=== PATIENT | male | born 1945 | race Caucasian/White ===

== ENCOUNTER → 2017-10-15 | Outpatient (CLI) | payer OTHER, MEDICARE | LOC: BMCIMAGING 11:08 | PROVIDERS: ATTEND Orthopaedic Surgery Hand Surgery | DX: M79.642 Pain in left hand (principal); R93.6 Abnormal findings on diagnostic imaging of limbs ==

== ENCOUNTER → 2017-12-25 | Outpatient (CLI) | payer OTHER, MEDICARE | LOC: BMCIMAGING 12:20 | PROVIDERS: ATTEND Physician Assistant Medical | DX: R05 Cough (principal); Z87.891 Personal history of nicotine dependence ==